=== PATIENT | female | born 1995 | race Caucasian/White ===

== ENCOUNTER 2020-03-29 14:51 | Outpatient (CLI) | payer MEDICAID | END 2020-03-29 23:59 | disposition home or self-care (01) | LOC: CARD DIAG 14:51 | DX: R00.0 Tachycardia, unspecified (principal) | CPT/HCPCS: 93005 ==

== ENCOUNTER 2024-03-12 09:51 | Emergency (ER) | payer MEDICAID ==
[~2024-03-12] VITALS: Ht 152.4 cm; Wt 83.5 kg
[2024-03-12 09:54] VITALS: BP 144/87; PULSE 90; TEMP 96.8; O2SAT 99
[2024-03-12] MEDS ORDERED: ONDA-243 PO (12:18)
[2024-03-12] MEDS ORDERED: HYDR-3973 PO (12:18)
[2024-03-12 12:55] VITALS: RESP 16
[2024-03-12] MEDS: HYDROcodone/acetaminophen 10/325mg tab PO ONE (12:55)
[2024-03-12] MEDS: ondansetron 4mg rapidly disintigrating tab PO ONE (12:56)
== END 2024-03-12 13:00 | disposition home or self-care (01) ==
LOC: ER 09:51
DX: S00.12XA Contusion of left eyelid and periocular area, initial encounter (principal); S60.211A Contusion of right wrist, initial encounter; Z88.1 Allergy status to other antibiotic agents; Z88.8 Allergy status to other drugs, medicaments and biological substances; W18.39XA Other fall on same level, initial encounter; Y93.89 Activity, other specified; Y92.89 Other specified places as the place of occurrence of the external cause; Y99.8 Other external cause status
CPT/HCPCS: 70486; 73110; 99284